=== PATIENT | female | born 1965 | race Hispanic/Latino ===

== ENCOUNTER 2016-09-26 13:43 | Inpatient (IN) | payer OTHER ==
[~2016-09-26] VITALS: Ht 154.9 cm; Wt 95.7 kg
[2016-09-26] VITALS (12 sets, daily range): BP systolic 101–139; BP diastolic 58–79
[~2016-09-26 13:43] MED LIST: ACTOS30 MG PO; ADVIL PM1 TABLET PO; ALBUTEROL17 G1 IH; ALTACE2.5 MG PO; ASPIR-TRIN325 M1 PO; CLARITIN,ALAVAR10 MG PO; CYCLOBENZAPRINE10 MG PO; CYMBALTA20 MG PO; Claritin,Alavart PO; DEPAKOTE ER250 MG PO; DILAUDID2 MG PO; DUONEB3 ML IH; ELAVIL25 MG PO; Ecotrin PO; Elavil PO; FOLIC ACID1 MG PO; GLUCOPHAGE XR1000 MG PO; GLUCOPHAGE500 MG PO; LIDODERM 5% P1 PATCH PO; LUNESTA1 MG PO; METFORMIN HCL500 MG PO; METHOTREXA250 MG/10 IV; MOTRIN800 MG PO; NEURONTIN300 MG PO; NITROSTAT0.4 MG SL; NORCO 5/3251 TABLET PO; NOVOLIN NPH,HU1 UNIT SC; PERCOCET 10-321 EACH PO; PERCOCET 10/1 TABLET PO; PHENTERMINE H37.5 MG PO; PREDNISONE10 MG PO; PRILOSEC40 MG PO; PROAIR HFA8.5 GM IH; Proventil,Ventolin H IH; REMICADE10 MG/ML IV; SINGULAIR10 MG PO; ST. JOSEPH ASPI81 MG PO; Singulair PO; TOPAMAX25 MG PO; TRAMADOL HCL50 MG PO; VOLTAREN50 MG PO; ZOFRAN ODT8 MG PO; predniSONE PO
[2016-09-26 13:59] LABS: CREATININE 0.6 mg/dL (0.6-1.3); POTASSIUM 3.8 mEq/L (3.7-5.4)
[2016-09-26 13:59] LABS: EOSINOPHIL (%) 0.6 % (0-5); HEMATOCRIT 39.4 % (36.0-46.0); IMMATURE GRANULOCYTE (%) 0.2 % (0.0-0.7); IMMATURE GRANULOCYTE COUNT 0.1 K/uL; LYMPHOCYTE COUNT 2.2 K/uL (1.0-2.8); MCH 30.7 PG (29.0-34.0); MCV 93.1 FL (83-99); MEAN PLAT.VOLUME 10.3 uM^3 (9.5-12.4); MONOCYTE (%) 5.7 % (3-12); MONOCYTE COUNT 0.4 K/uL (0-0.8); NEUTROPHIL (%) 60.3 % (45-76); PLATELET COUNT 280 K/uL (156-360); RBC DIS.WIDTH-CV 14.4 % (11.8-14.6); RBC DIS.WIDTH-SD 47.5 % (39-53); RED BLOOD COUNT 4.23 M/uL (3.80-5.20); WHITE BLOOD COUNT 6.6 K/uL (4.1-10.2)
[2016-09-26 14:11] LABS: AMYLASE 49 IU/L (1-118); CHLORIDE 104 mEq/L (99-109); POTASSIUM 3.8 mEq/L (3.7-5.4); SODIUM 136 mEq/L (136-147)
[2016-09-26 14:12] LABS: GLUCOSE 339 mg/dL (70-99)
[2016-09-26 14:13] LABS: ANION GAP 11 MEQ/L (2-14)
[2016-09-26 14:15] LABS: SERUM ETHYL ALCOHOL < 10 mg/dL
[2016-09-26 14:16] LABS: GFR ESTIMATE (CALCULATED) > 59 mL/min/
[2016-09-26 14:17] LABS: UREA NITROGEN (BUN) 18 mg/dL (9-23)
[2016-09-26 14:19] LABS: LIPASE 47 U/L (1.0-51.0)
[2016-09-26 14:21] LABS: TROP-I INTERPRETATION NEGATIVE; TROPONIN-I < 0.01 ng/mL (0.0-0.30)
[2016-09-26 14:24] LABS: QUANTITATIVE HCG < 4.0 MIU/ML
[2016-09-26 16:23] LABS: POINT-OF-CARE METER ID UU14100415
[2016-09-26 17:59] LABS: METH RESISTANT S AUREUS PCR POSITIVE (NEGATIVE)
[2016-09-26 18:09] LABS: PROBE CHECK PASS
[2016-09-26 19:17] LABS: TROP-I INTERPRETATION NEGATIVE; TROPONIN-I 0.02 ng/mL (0.0-0.30)
[2016-09-26 20:18] LABS: CREATINE KINASE 50 IU/L (1-294); TOTAL CK 50 IU/L (1-294)
[2016-09-26 22:14] LABS: HDL CHOLESTEROL 67 MG/DL (Desirable>=50); LDL CHOLESTEROL 79 mg/dL (Desirable<100); NON-HDL CHOLESTEROL 102 mg/dL (Desirable<160); TOTAL CHOLESTEROL 169 mg/dL (Desirable<200); TRIGLYCERIDES 117 MG/DL (Normal: <150)
[2016-09-26 22:14] LABS: POINT-OF-CARE METER ID UU13113748; POINT-OF-CARE USER ID RADDRS44
[2016-09-26 22:23] LABS: ADD MIUA? YES; BILIRUBIN NEGATIVE; BLOOD NEGATIVE; COLOR YELLOW ((YELLOW)); GLUCOSE (STRIP) NEGATIVE; KETONES NEGATIVE; LEUKOCYTES MODERATE; NITRITE NEGATIVE; PROTEIN (STRIP) NEGATIVE; SPECIFIC GRAVITY 1.019 (1.000-1.030); UROBILINOGEN 0.2 MG/DL (0.2-1.0)
[2016-09-26 22:29] LABS: BACTERIA NONE SEEN /HPF; EPITHELIAL CELLS 1+ /HPF; MUCUS NONE SEEN /LPF; UCUL ADDED? NO
[2016-09-26 22:34] LABS: AMPHETAMINE NEGATIVE (500 ng/mL); BARBITURATES NEGATIVE (200 ng/mL); BENZODIAZEPINES NEGATIVE (150 ng/mL); COCAINE NEGATIVE (150 ng/mL); INTERNAL CONTROLS VALID? YES; METHADONE NEGATIVE (200 ng/mL); METHAMPHETAMINE NEGATIVE (500 ng/mL); OPIATES (MORPHINE) NEGATIVE (100 ng/mL); OXYCODONE NEGATIVE (100 ng/mL); PHENCYCLIDINE NEGATIVE (25 ng/mL); PROPOXYPHENE NEGATIVE (300 ng/mL); THC CANNABINOIDS NEGATIVE (50 ng/mL); TRICYCLIC ANTIDEPRESSANTS PRESUMPTIVE POSITIVE (300 ng/mL)
[2016-09-27] VITALS (23 sets, daily range): BP systolic 98–153; BP diastolic 52–90
[2016-09-27 01:32] LABS: CREATINE KINASE 61 IU/L (1-294); TOTAL CK 61 IU/L (1-294)
[2016-09-27 01:37] LABS: TROP-I INTERPRETATION NEGATIVE; TROPONIN-I < 0.01 ng/mL (0.0-0.30)
[2016-09-27 01:39] LABS: CK-MB 0.8 ng/mL (0.0-4.9)
[2016-09-27 05:44] LABS: HEMATOCRIT 35.9 % (36.0-46.0); MCHC 32.6 G/DL (30.0-36.0); MCV 95.2 FL (83-99); MEAN PLAT.VOLUME 11.1 uM^3 (9.5-12.4); PLATELET COUNT 256 K/uL (156-360); RBC DIS.WIDTH-CV 14.7 % (11.8-14.6); RBC DIS.WIDTH-SD 51.2 % (39-53); RED BLOOD COUNT 3.77 M/uL (3.80-5.20); WHITE BLOOD COUNT 6.3 K/uL (4.1-10.2)
[2016-09-27 06:12] LABS: CREATINE KINASE 50 IU/L (1-294); TOTAL CK 50 IU/L (1-294)
[2016-09-27 06:20] LABS: TROP-I INTERPRETATION NEGATIVE; TROPONIN-I 0.01 ng/mL (0.0-0.30)
[2016-09-27 06:34] LABS: ALKALINE PHOSPHATASE 65 IU/L (3-129); ANION GAP 7 MEQ/L (2-14); CHLORIDE 109 MEQ/L (99-109); GFR ESTIMATE (CALCULATED) > 59 mL/min/; GLUCOSE 203 mg/dL (70-99); SAMPLE HEMOLYSIS CHECK 0; SAMPLE ICTERIC CHECK 0; SAMPLE LIPEMIA CHECK 0; SODIUM 137 MEQ/L (136-147); TOTAL BILIRUBIN 0.2 MG/DL (0.0-1.0); UREA NITROGEN (BUN) 14 mg/dL (9-23)
[2016-09-27 08:37] LABS: Estimated Average Glucose 220 mg/dL (70-123); HEMOGLOBIN A1c (GLYCOHEMOGLOB) 9.3 % HGB (Below 5.7)
[2016-09-27 08:57] LABS: POINT-OF-CARE METER ID UU13113731
[2016-09-27] MEDS ORDERED: OXYCODONE-APAP1 EACH PO (09:44)
[2016-09-27] MEDS ORDERED: INDERAL40 MG PO (09:45)
[2016-09-27] MEDS ORDERED: IBUPROFEN800 MG PO (09:45)
[2016-09-27] MEDS ORDERED: TOPIRAMATE100 MG PO (09:47)
[2016-09-27] MEDS ORDERED: GABAPENTIN300 MG PO (09:47)
[2016-09-27] MEDS ORDERED: PROAIR HFA8.5 GM IH (09:47)
[2016-09-27] MEDS ORDERED: CYCLOBENZAPRINE10 MG PO (09:47)
[2016-09-27] MEDS ORDERED: AMITRIPTYLINE H25 MG PO (09:48)
[2016-09-27] MEDS ORDERED: HUMULIN N100 UNIT/2 SC (09:49)
[2016-09-27] MEDS ORDERED: OMEPRAZOLE40 M1 PO (09:49)
[2016-09-27] MEDS ORDERED: PIOGLITAZONE HC30 MG PO (09:49)
[2016-09-27] MEDS ORDERED: OXYMORPHONE HCL15 MG PO (09:49)
[2016-09-27] MEDS ORDERED: METFORMIN HCL500 M1 PO (09:49)
[2016-09-27] MEDS ORDERED: METHOTREXA250 MG/10 SC (09:51)
[2016-09-27] MEDS ORDERED: FOLIC ACID0.8 MG PO (09:52)
[2016-09-27 12:11] LABS: POINT-OF-CARE METER ID UU13113731
[2016-09-27 16:16] LABS: POINT-OF-CARE METER ID UU13113731
[2016-09-27 21:27] LABS: POINT-OF-CARE METER ID UU14174217; POINT-OF-CARE USER ID PHATLC
[2016-09-28] VITALS (9 sets, daily range): BP systolic 92–140; BP diastolic 58–87
[2016-09-28 06:31] LABS: GFR ESTIMATE (CALCULATED) > 59 mL/min/; UREA NITROGEN (BUN) 14 mg/dL (9-23)
[2016-09-28] MEDS ORDERED: PRAVASTATIN SOD80 MG PO (07:35)
[2016-09-28] MEDS ORDERED: ASPIR-LOW81 MG PO (07:35)
[2016-09-28 07:48] LABS: POINT-OF-CARE METER ID UU14162636
[2016-09-28 12:02] LABS: POINT-OF-CARE METER ID UU14174217
== END 2016-09-28 11:48 | disposition home or self-care (01) | DRG 63 ==
LOC: EME 13:43 → EDOF 15:50 → 4WEST 15:50
PROVIDERS: Emergency Medicine; Pediatrics; Specialist; Surgery
DX: I63.9 Cerebral infarction, unspecified (principal); E11.65 Type 2 diabetes mellitus with hyperglycemia; I10 Essential (primary) hypertension; G43.409 Hemiplegic migraine, not intractable, without status migrainosus; M06.9 Rheumatoid arthritis, unspecified; G43.109 Migraine with aura, not intractable, without status migrainosus; J45.909 Unspecified asthma, uncomplicated; G89.29 Other chronic pain; E66.01 Morbid (severe) obesity due to excess calories; R29.704 NIHSS score 4; R07.9 Chest pain, unspecified; K21.9 Gastro-esophageal reflux disease without esophagitis; Z79.84 Long term (current) use of oral hypoglycemic drugs; Z68.39 Body mass index [BMI] 39.0-39.9, adult
CPT/HCPCS: 70450; 70496; 70498; 70551; 71010; 80047; 80048; 80053; 80061; 81003; 82010; 82150; 82550; 82550 91; 82553; 82565; 82948; 83036; 83690; 84484; 84520; 84702; 85025; 85027; 87086; 87641; 93005; 93306; 93970; 99202; 99281; 99285; G0480; J0131; J1815; J1885; J2405; J2997; J7030

== ENCOUNTER → 2017-10-07 | Outpatient (CLI) | payer OTHER ==
[~2017-10-07] VITALS: Ht 154.9 cm; Wt 94.8 kg
[~2017-10-07] MED LIST changes: +AMITRIPTYLINE H25 MG PO; +ASPIR-LOW81 MG PO; +FARXIGA10 MG PO; +FOLIC ACID0.8 MG PO; +GABAPENTIN300 MG PO; +HUMALOG100 UNIT/2 SC; +HUMIRA40 MG/0.8 SC; +HUMULIN N100 UNIT/2 SC; +IBUPROFEN800 MG PO; +IMITREX50 MG PO; +INDERAL40 MG PO; +LANTUS 3 M100 UNITS1 SC; +METFORMIN HCL500 M1 PO; +METHOTREXA250 MG/10 SC; +OMEPRAZOLE40 M1 PO; +OXYCODONE-APAP1 EACH PO; +OXYMORPHONE HCL15 MG PO; +PIOGLITAZONE HC30 MG PO; +PRAVASTATIN SOD80 MG PO; +PROVENTIL,2.5 MG/3 M IH; +RELPAX20 MG PO; +VICTOZA0.6 MG/0.1 SC
== END | disposition home or self-care (01) ==
LOC: AMB 09:26
PROVIDERS: Internal Medicine
PROC: 0DBP8ZX Excision of Rectum, Via Natural or Artificial Opening Endoscopic, Diagnostic (ICD-10-PCS; principal; 2017-10-07)
DX: Z12.11 Encounter for screening for malignant neoplasm of colon (principal); K62.1 Rectal polyp; E11.9 Type 2 diabetes mellitus without complications; E78.00 Pure hypercholesterolemia, unspecified; I10 Essential (primary) hypertension; E66.9 Obesity, unspecified; Z83.3 Family history of diabetes mellitus
CPT/HCPCS: 82948; 88305; 93005